=== PATIENT | male | born 1975 | race Caucasian/White ===

== ENCOUNTER 2016-08-09 08:03 | Inpatient (IN) | payer SELFPAY ==
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
--- NOTE | ~2016-08-09 | DS ---
Discharge Summary [facility] [address] [place]. [address] NAME: KATERINA HERNANDEZ : 73 STATUS : DIS IN PAT#: [id number] AGE: 41 ADM/REG DATE : 08/09/16 MR#: [id number] REPORT SERV DATE: 08/12/16 DICTATED BY: ANNA NGUYỄN DATE: 08/11/16 REPORT STATUS : Draft TRANSCRIBED BY: ANIBAL DATE: 08/11/16 ADMISSION DATE: 08/09/2016 DISCHARGE DATE: 08/11/2016 CONSULTATION: None. INVASIVE PROCEDURE: None. DISCHARGE DIAGNOSES: 1. Acute pancreatitis. 2. Alcohol withdrawal. 3. Alcohol abuse. 4. Malignant hypertension. 5. Thrombocytopenia. 6. Microcytosis. 7. Tobacco abuse. 8. Polysubstance abuse (marijuana and amphetamine). DISCHARGE CONDITION: Stable. HISTORY OF PRESENT ILLNESS: For detailed HPI, please make reference to Dr. Dez Daley's dictation on 08/09/2016. In brief, this is a 41-year-old male with medical history of alcohol abuse and polysubstance abuse who presented to the hospital with complaints of abdominal pain. Patient reports that he drinks about a half gallon of vodka a day and has been drinking heavily for the last 5 months after his passed. In the ER, blood pressure was 177/114, heart rate was 101, respiratory rate was 18, temperature was 97. Physical exam was noted for epigastric tenderness without rebound and guarding. CT of the abdomen showed acute pancreatitis with enlarged liver with extensive fatty liver and nonobstructing bilateral kidney stones. LABORATORY DATA: White blood cell was 7.8, creatinine was 0.7, lipase was 7926, AST was 183, ALT was 85. An assessment of acute pancreatitis due to alcohol use was made in the ER, the patient was admitted to the hospital. HOSPITAL COURSE: Acute alcoholic pancreatitis. The patient was made n.p.o., was started on IV fluids resuscitation, was given Zofran p.r.n. The patient's abdominal pain subsequently improved. Patient's diet was advanced to regular meals. The patient was able to tolerate p.o. diet without significant pain prior to discharge. The patient was subsequently advised to continue follow up with primary care physician. Alcohol withdrawal: Patient had mild symptoms of alcohol withdrawal with asterixis and tremors. Patient was given IV Ativan p.r.n. for alcohol withdrawal symptoms control per CIWA scale. At the time of discharge, the patient had no further features of alcohol withdrawal. Patient was less tremulous, was alert, oriented, no formication reported. Patient was advised to continue follow up with primary care physician. Discharge Summary [address] [address] NAME: KATERINA HERNANDEZ : 73 STATUS : DIS IN PAT#: [id number] AGE: 41 ADM/REG DATE : 08/09/16 MR#: [id number] REPORT SERV DATE: 08/12/16 DICTATED BY: ANNA NGUYỄN DATE: 08/11/16 REPORT STATUS : Draft TRANSCRIBED BY: ANIBAL DATE: 08/11/16 Alcohol abuse. The patient reports that he will voluntarily check himself into an Alcohol Substance Abuse Rehab Facility as an outpatient. At the time of discharge, the patient called his roommate who works as a pharmacy stock clerk at [employer], who came to the hospital and picked up patient and patient agreed to be checked into a rehab facility at the time of discharge. Hypertension. Patient's blood pressure was significantly elevated during the course of this admission. Patient was placed on clonidine patch, Norvasc, and metoprolol prior to discharge. Patient was advised to continue blood pressure management and follow up with primary care physician as an outpatient. DISPOSITION: Home with roommate to be checked into acute rehab as an outpatient. DISCHARGE MEDICATIONS: 1. Norvasc 10 mg p.o. daily. 2. Clonidine 0.1 mg patch q.7 days. 3. Metoprolol 25 mg p.o. b.i.d. 4. Folic acid 1 mg p.o. daily. 5. Thiamine 100 mg p.o. daily. 6. Multivitamins one p.o. daily. DISCHARGE ACTIVITY: As tolerated. DISCHARGE DIET: As tolerated, low-salt diet. DISCHARGE FOLLOWUP: Follow up with primary care physician within one week of discharge. Greater than 35 minutes was used to prepare this patient's discharge, reconcile medication, and advise the patient on discharge plans and followup. DICTATED BY: MD MASSIEL Dudley/ANIBAL Anna Nguyễn MD / [id number] CC: Anna Nguyễn MD
[2016-08-09 08:00] LABS: BASOPHILS 0.1 %; BASOPHILS ABSOLUTE 0.01 10/3/uL (0.0-0.16); EOSINOPHILS ABSOLUTE 0.08 10/3/uL (0.0-0.53); ER CBC TAT 0 Hrs 11 Mins; HEMATOCRIT 39.5 % (40.0-51.0); HEMOGLOBIN 13.9 g/dL (13.6-17.8); IMMATURE GRANULOCYTES 0.3 %; IMMATURE GRANULOCYTES ABSOLUTE 0.02 10/3/uL (0.0-0.11); LYMPHOCYTES 17.2 %; LYMPHOCYTES ABSOLUTE 1.35 10/3/uL (0.67-4.30); MEAN CORPUS HGB CONC 35.2 g/dL (32.0-36.0); MEAN CORPUSCULAR HEMOGLOB 37.8 pg (26.0-34.0); MEAN CORPUSCULAR VOLUME 107.3 fL (80-100); MEAN PLATELET VOLUME 10.6 fL (9.2-13.0); MONOCYTES 7.5 %; MONOCYTES ABSOLUTE 0.59 10/3/uL (0.21-1.20); NEUTROPHILS 73.9 %; NEUTROPHILS ABSOLUTE 5.79 10/3/uL (2.02-8.40); RBC DISTRIBUTION WIDTH 13.7 % (12.0-16.0); RED CELL COUNT 3.68 10/6/uL (4.7-6.1); WHITE BLOOD CELLS 7.8 10/3/uL (4.5-10.5)
[2016-08-09 08:01] LABS: MANUAL DIFF NO %; PLATELET COUNT 130 10/3/uL (150-400)
[2016-08-09 08:15] LABS: A/G RATIO 0.8 (0.7-1.9); BUN (BLOOD UREA NITROGEN) 7 MG/DL (6-23); CHLORIDE, SERUM 97 MMOL/L (96-112); CO2 (CARBON DIOXIDE) 23 MMOL/L (24-34); CREATININE 0.72 MG/DL (0.70-1.30); GFR AFRICAN AMERICAN 133 ML/MIN (>=60); GFR NON AFRICAN AMERICAN 115 ML/MIN (>=60); GLUCOSE, SERUM 113 MG/DL (60-99); SGOT(AST) 183 U/L (5-40); SGPT(ALT) 85 U/L (5-65); SODIUM, SERUM 132 MMOL/L (135-148); TOTAL BILIRUBIN 1.2 MG/DL (0-1.2)
[2016-08-09 08:17] LABS: ALKALINE PHOSPHATASE 171 U/L (45-117); CALCIUM, SERUM 9.3 MG/DL (8.5-10.4); POTASSIUM, SERUM 2.7 MMOL/L (3.5-5.3)
[2016-08-09 08:23] LABS: LACTATE 2.2 MMOL/L (0.3-2.4)
[2016-08-09] MEDS ORDERED: POTASSIUM PO (10:12)
[2016-08-09] MEDS ORDERED: MAGNESIUM PO (10:12)
[2016-08-09] MEDS ORDERED: REFRESH OPH (10:13)
[2016-08-09 11:07] LABS: ASCORBIC ACID (UR NOT ORDER) NEG (NEG); BILIRUBIN, URINE NEGATIVE (NEG); ER URINALYSIS TAT 0 Hrs 19 Mins; KETONE, URINE TRACE MG/DL (NEG); LEUKOCYTE ESTERASE(NOT OR NEG (NEG); NITRITE (URINE) NEG (NEG); WBC (NOT ORDERED) (RFLEX) 1 (0-5)
[2016-08-10 00:56] LABS: POTASSIUM, SERUM 3.6 MMOL/L (3.5-5.3)
[2016-08-10 06:40] LABS: BASOPHILS 0.1 %; BASOPHILS ABSOLUTE 0.01 10/3/uL (0.0-0.16); EOSINOPHILS 0.2 %; EOSINOPHILS ABSOLUTE 0.03 10/3/uL (0.0-0.53); HEMATOCRIT 40.8 % (40.0-51.0); HEMOGLOBIN 14.3 g/dL (13.6-17.8); IMMATURE GRANULOCYTES 0.5 %; IMMATURE GRANULOCYTES ABSOLUTE 0.06 10/3/uL (0.0-0.11); LYMPHOCYTES 7.8 %; LYMPHOCYTES ABSOLUTE 0.96 10/3/uL (0.67-4.30); MEAN CORPUSCULAR HEMOGLOB 38.2 pg (26.0-34.0); MEAN CORPUSCULAR VOLUME 109.1 fL (80-100); MEAN PLATELET VOLUME 11.3 fL (9.2-13.0); MONOCYTES 6.9 %; MONOCYTES ABSOLUTE 0.84 10/3/uL (0.21-1.20); NEUTROPHILS 84.5 %; NEUTROPHILS ABSOLUTE 10.36 10/3/uL (2.02-8.40); PLATELET COUNT 138 10/3/uL (150-400); RBC DISTRIBUTION WIDTH 13.8 % (12.0-16.0); RED CELL COUNT 3.74 10/6/uL (4.7-6.1)
[2016-08-10 06:41] LABS: MANUAL DIFF NO %; WHITE BLOOD CELLS 12.3 10/3/uL (4.5-10.5)
[2016-08-10 07:17] LABS: BUN (BLOOD UREA NITROGEN) 7 MG/DL (6-23); CALCIUM, SERUM 9.1 MG/DL (8.5-10.4); CHLORIDE, SERUM 94 MMOL/L (96-112); CO2 (CARBON DIOXIDE) 21 MMOL/L (24-34); CREATININE 0.61 MG/DL (0.70-1.30); GFR AFRICAN AMERICAN 143 ML/MIN (>=60); GFR NON AFRICAN AMERICAN 123 ML/MIN (>=60); GLUCOSE, SERUM 133 MG/DL (60-99); POTASSIUM, SERUM 3.3 MMOL/L (3.5-5.3); SODIUM, SERUM 128 MMOL/L (135-148)
[2016-08-10 07:18] LABS: FOLATE 12.9 NG/ML (>5.2)
[2016-08-10 09:09] LABS: PHOSPHORUS, SERUM 3.3 MG/DL (2.5-4.5)
[2016-08-10 10:03] LABS: AMPHETAMINES (NOT ORD) POS (NEG); BENZODIAZEPINES (NOT ORD) POS (NEG); CANNABINOIDS (THC) POS (NEG); COCAINE (NOT ORDERED) NEG (NEG); OPIATES POS (NEG); PHENCYCLIDINE(PCP) NEG (NEG)
[2016-08-10 10:04] LABS: BARBITURATES (NOT ORDERED NEG (NEG); TRICYCLICS NEG (NEG)
[2016-08-10 20:06] LABS: BUN (BLOOD UREA NITROGEN) 7 MG/DL (6-23); CALCIUM, SERUM 8.3 MG/DL (8.5-10.4); CHLORIDE, SERUM 96 MMOL/L (96-112); CO2 (CARBON DIOXIDE) 25 MMOL/L (24-34); CREATININE 0.76 MG/DL (0.70-1.30); GFR AFRICAN AMERICAN 130 ML/MIN (>=60); GFR NON AFRICAN AMERICAN 113 ML/MIN (>=60); GLUCOSE, SERUM 168 MG/DL (60-99); SODIUM, SERUM 129 MMOL/L (135-148)
[2016-08-11 06:15] LABS: BASOPHILS 0.1 %; BASOPHILS ABSOLUTE 0.01 10/3/uL (0.0-0.16); EOSINOPHILS 0.2 %; EOSINOPHILS ABSOLUTE 0.02 10/3/uL (0.0-0.53); HEMATOCRIT 36.1 % (40.0-51.0); HEMOGLOBIN 12.4 g/dL (13.6-17.8); IMMATURE GRANULOCYTES 0.7 %; IMMATURE GRANULOCYTES ABSOLUTE 0.08 10/3/uL (0.0-0.11); LYMPHOCYTES 9.7 %; LYMPHOCYTES ABSOLUTE 1.14 10/3/uL (0.67-4.30); MANUAL DIFF NO %; MEAN CORPUS HGB CONC 34.3 g/dL (32.0-36.0); MEAN CORPUSCULAR HEMOGLOB 37.6 pg (26.0-34.0); MEAN CORPUSCULAR VOLUME 109.4 fL (80-100); MEAN PLATELET VOLUME 11.3 fL (9.2-13.0); MONOCYTES 11.5 %; MONOCYTES ABSOLUTE 1.35 10/3/uL (0.21-1.20); NEUTROPHILS 77.8 %; NEUTROPHILS ABSOLUTE 9.19 10/3/uL (2.02-8.40); PLATELET COUNT 118 10/3/uL (150-400); RBC DISTRIBUTION WIDTH 14.1 % (12.0-16.0); WHITE BLOOD CELLS 11.8 10/3/uL (4.5-10.5)
[2016-08-11 06:25] LABS: BUN (BLOOD UREA NITROGEN) 6 MG/DL (6-23); CALCIUM, SERUM 8.4 MG/DL (8.5-10.4); CHLORIDE, SERUM 98 MMOL/L (96-112); CO2 (CARBON DIOXIDE) 24 MMOL/L (24-34); CREATININE 0.54 MG/DL (0.70-1.30); GFR AFRICAN AMERICAN 150 ML/MIN (>=60); GFR NON AFRICAN AMERICAN 129 ML/MIN (>=60); POTASSIUM, SERUM 3.7 MMOL/L (3.5-5.3); SGOT(AST) 45 U/L (5-40); SGPT(ALT) 39 U/L (5-65); SODIUM, SERUM 132 MMOL/L (135-148); TOTAL BILIRUBIN 1.2 MG/DL (0-1.2)
[2016-08-11 06:26] LABS: A/G RATIO 0.7 (0.7-1.9); ALBUMIN 2.9 G/DL (3.5-5.0); ALKALINE PHOSPHATASE 122 U/L (45-117); GLOBULIN 4.2 G/DL (2.5-4.1); GLUCOSE, SERUM 131 MG/DL (60-99); TOTAL PROTEIN 7.1 G/DL (6.0-8.5)
[2016-08-11] MEDS ORDERED: CATPATCH1 TOP (15:55)
[2016-08-11] MEDS ORDERED: FOLIC PO (15:59)
[2016-08-11] MEDS ORDERED: NORV10 PO (15:59)
[2016-08-11] MEDS ORDERED: MULTI-VIT HP PO (16:00)
[2016-08-11] MEDS ORDERED: LOP25 PO (16:00)
[2016-08-11] MEDS ORDERED: B1100 PO (16:01)
[2016-08-11] MEDS ORDERED: HABIT21 TOP (16:01)
== END 2016-08-11 16:15 | disposition home or self-care (01) | DRG 439 ==
LOC: ER 08:03 → 1SO 10:11
PROVIDERS: Hospitalist; Internal Medicine
DX: K85.20 Alcohol induced acute pancreatitis without necrosis or infection (principal); R65.10 Systemic inflammatory response syndrome (SIRS) of non-infectious origin without acute organ dysfunction; F10.188 Alcohol abuse with other alcohol-induced disorder; E87.1 Hypo-osmolality and hyponatremia; D69.6 Thrombocytopenia, unspecified; K76.0 Fatty (change of) liver, not elsewhere classified; R25.1 Tremor, unspecified; I10 Essential (primary) hypertension; R27.8 Other lack of coordination; E87.6 Hypokalemia; N20.0 Calculus of kidney; D75.89 Other specified diseases of blood and blood-forming organs; F17.210 Nicotine dependence, cigarettes, uncomplicated; F12.10 Cannabis abuse, uncomplicated; F15.10 Other stimulant abuse, uncomplicated; Z79.899 Other long term (current) drug therapy
CPT/HCPCS: 74176; 80048; 80053; 80305; 81001; 82607; 82746; 83605; 83690; 83735; 84100; 84132; 85025; 93005; 96374; 96375; 99285; A9270-GY; J0360; J1170; J2405; J3411; J3475